=== PATIENT | female | born 1970 | race Caucasian/White ===

== ENCOUNTER 2019-07-13 06:27 | Day surgery (SDC) | payer OTHER, SELFPAY ==
[~2019-07-13] VITALS: Ht 162.6 cm; Wt 72.1 kg
[2019-07-13] MEDS ORDERED: MIDAZOLAM 2 MG/2 ML VIAL ONE (08:37)
[2019-07-13] MEDS ORDERED: diphenhydrAMINE 50 MG/ML VIAL ONE (08:37)
[2019-07-13] MEDS ORDERED: fentaNYL 0.05 MG/ML VIAL ONE (08:37)
[2019-07-13] MEDS ORDERED: LIDOCAINE 2% 100 MG/5 ML UJET TP ONE (08:38)
[2019-07-13] MEDS ORDERED: fentaNYL 0.05 MG/ML VIAL IVP ONE (09:15)
[2019-07-13] MEDS ORDERED: MIDAZOLAM 2 MG/2 ML VIAL IVP ONE (09:15)
== END 2019-07-13 10:40 | disposition home or self-care (01) ==
LOC: MDS 06:27 → MMU 06:29 → MDS 10:40
PROVIDERS: ATTEND Internal Medicine Gastroenterology
DX: R10.9 Unspecified abdominal pain (principal); K63.89 Other specified diseases of intestine; Z79.2 Long term (current) use of antibiotics; Z79.899 Other long term (current) drug therapy
CPT/HCPCS: 36415; 45378; J2250; J3010; J1200

== ENCOUNTER 2019-07-25 06:53 | Day surgery (SDC) | payer OTHER, SELFPAY ==
[~2019-07-25] VITALS: Ht 162.6 cm; Wt 71.2 kg
[2019-07-25] MEDS ORDERED: BUPIVACAINE-MPF 0.25% 30 ML VIAL INJ ONE (07:13)
[2019-07-25] MEDS ORDERED: LIDOCAINE 1% 500 MG/50 ML VIAL ONE (07:13)
[2019-07-25] MEDS ORDERED: METOCLOPRAMIDE 10 MG/2 ML INJ VIAL ONE (07:44)
[2019-07-25] MEDS ORDERED: PROPOFOL 200 MG/20 ML VIAL IV ONE (07:44)
[2019-07-25] MEDS ORDERED: DEXAMETHASONE 4 MG/ML VIAL ONE (07:44)
[2019-07-25] MEDS ORDERED: SUCCINYLCHOLINE CHLORIDE 200 MG/10 ML VIAL IVP ONE (07:44)
[2019-07-25] MEDS ORDERED: DESFLURANE 240 ML BTL INH ONE (07:44)
[2019-07-25] MEDS ORDERED: ONDANSETRON 4 MG/2 ML VIAL ONE (07:44)
[2019-07-25] MEDS ORDERED: ROCURONIUM 50 MG/5 ML VIAL IV ONE (07:44)
[2019-07-25] MEDS ORDERED: HYDROmorphone PFS 2 MG/ML SYR ONE (07:44)
[2019-07-25] MEDS ORDERED: KETOROLAC 30 MG/ML VIAL ONE (07:44)
[2019-07-25] MEDS ORDERED: HYDROmorphone 1 MG/ML AMP IVP PRN (08:15)
[2019-07-25] MEDS ORDERED: ONDANSETRON 4 MG/2 ML VIAL IVP PRN (08:15)
[2019-07-25] MEDS ORDERED: oxyCODONE/APAP 5/325 MG 1 TAB TAB PO PRN (09:00)
[2019-07-25] MEDS ORDERED: KETOROLAC 30 MG/ML VIAL IVP SCH (09:15)
== END 2019-07-25 11:15 | disposition home or self-care (01) ==
LOC: MDS 06:53 → MMU 06:57 → MDS 11:15
PROVIDERS: ATTEND Obstetrics & Gynecology
DX: R19.00 Intra-abdominal and pelvic swelling, mass and lump, unspecified site (principal); N80.3 Endometriosis of pelvic peritoneum
CPT/HCPCS: 36415; 58558; 58662; 86886; 86900; 86901; J0330; J1100; J1170; J1885; J2405; J2704; J2765; J3490; J7120; 88305; J2001

== ENCOUNTER 2020-04-09 05:26 | Inpatient (IN) | payer OTHER ==
[~2020-04-09] VITALS: Ht 162.6 cm; Wt 69.4 kg
[2020-04-09] MEDS ORDERED: MORPHINE PRES FREE 10 MG/10 ML AMP IV ONE (06:56)
[2020-04-09] MEDS ORDERED: SYN.05 PO (08:11)
--- NOTE | 2020-04-09 09:03 | NUR ---
PATIENT HAS BEEN SCREENED AND CATEGORIZED LOW NUTRITION RISK. PATIENT WILL BE SEEN WITHIN 7 DAYS OF ADMISSION. 04/15/[address]
[2020-04-09] MEDS ORDERED: diphenhydrAMINE 50 MG/ML VIAL IVP PRN ×2 (11:20)
[2020-04-09] MEDS ORDERED: ONDANSETRON 4 MG/2 ML VIAL IVP PRN ×2 (11:20)
[2020-04-09] MEDS ORDERED: NALOXONE 0.4 MG/ML VIAL IVP PRN ×2 (11:20)
[2020-04-09] MEDS ORDERED: MEPERIDINE 25 MG/ML SYR IVP PRN (11:20)
[2020-04-09] MEDS ORDERED: PROMETHAZINE 25 MG/ML VIAL IVP PRN (14:00)
[2020-04-09] MEDS ORDERED: IBUPROFEN 800 MG TAB PO PRN (17:55)
[2020-04-09] MEDS: LACTATED RINGERS 1,000 ML IV SCH (18:24)
[2020-04-09] MEDS: KETOROLAC 30 MG/ML VIAL IM/IVP SCH (18:29)
[2020-04-10] MEDS: KETOROLAC 30 MG/ML VIAL IM/IVP SCH ×2 (00:10→05:54)
[2020-04-10] MEDS: LACTATED RINGERS 1,000 ML IV SCH (02:00)
[2020-04-10] MEDS: PATIENTS OWN TABLET PO SCH (07:19)
[2020-04-10] MEDS ORDERED: METOCLOPRAMIDE 10 MG TAB PO SCH (07:30)
[2020-04-10] MEDS ORDERED: SIMETHICONE 80 MG TAB.CHEW PO PRN (07:55)
[2020-04-10] MEDS ORDERED: METOCLOPRAMIDE 10 MG/2 ML INJ VIAL IVP PRN (08:15)
[2020-04-10] MEDS ORDERED: COMMUNICATION ORDER MC SCH (09:00)
[2020-04-10] MEDS ORDERED: DOCUSATE SODIUM 100 MG GELCAP PO SCH (09:00)
[2020-04-10] MEDS ORDERED: CAMERA MC ONE (19:09)
[2020-04-10] MEDS: oxyCODONE/APAP 5/325 MG 1 TAB TAB PO PRN (19:11)
[2020-04-11] MEDS: PATIENTS OWN TABLET PO SCH (06:34)
[2020-04-11] MEDS: oxyCODONE/APAP 5/325 MG 1 TAB TAB PO PRN (06:34)
== END 2020-04-11 11:10 | disposition home or self-care (01) | DRG 513 ==
LOC: MFCC 05:26
PROVIDERS: ADMIT Obstetrics & Gynecology; ATTEND Obstetrics & Gynecology
PROC: 0UT90ZL Resection of Uterus, Supracervical, Open Approach (ICD-10-PCS; principal; 2020-04-09 07:30)
DX: N80.0 Endometriosis of uterus (principal); Z20.822 Contact with and (suspected) exposure to COVID-19; E03.9 Hypothyroidism, unspecified
CPT/HCPCS: 36415; 86886; 86900; 86901; 88307; J0690; J1885; J2270; J2550; J7060; J7120; J8597